=== PATIENT | male | born 1990 | race Caucasian/White ===

== ENCOUNTER 2021-12-27 09:25 | Inpatient (IN) | payer OTHER ==
[2021-12-27] MEDS ORDERED: Morphine 4 MG/ML Syringe IVPUSH ONE (09:31)
[2021-12-27] MEDS ORDERED: Sodium Chloride 0.9% 2.5 ML Syringe FLUSH PRN ×2 (09:34→17:13)
[2021-12-27] MEDS ORDERED: Sodium Chloride 0.9% 10 ML Syringe FLUSH PRN ×2 (09:34→17:13)
[2021-12-27 10:29] LABS: CARBON DIOXIDE,CO2 22.8 mmol/L (21.0-32.0); POTASSIUM,K 3.9 mmol/L (3.5-5.1)
[2021-12-27] MEDS ORDERED: Iopamidol 755 MG/ML 500 ML Multipack Bottle IVPUSH ONE (11:01)
[2021-12-27] MEDS ORDERED: metroNIDAZOLE/Normal Saline 500 MG in Premix Bag 1 BAG IV ONE (12:05)
[2021-12-27] MEDS ORDERED: cefTRIAXone 2 GM in Premix Bag 1 BAG IV ONE (12:05)
[2021-12-27] MEDS ORDERED: HYDROmorphone 2 MG/ML Syringe IVPUSH ONE (13:20)
[2021-12-27] MEDS ORDERED: Propofol 200 MG/20 ML SDV ONE (13:23)
[2021-12-27] MEDS ORDERED: Dexamethasone 4 MG/ML 5 ML MDV ONE (13:23)
[2021-12-27] MEDS ORDERED: Lidocaine 2% 5 ML SDV ONE (13:23)
[2021-12-27] MEDS ORDERED: Rocuronium Bromide 50 MG/5 ML Syringe ONE ×2 (13:23→15:02)
[2021-12-27] MEDS ORDERED: Sugammadex Sodium 200 MG/2 ML VIAL ONE (13:23)
[2021-12-27] MEDS ORDERED: Ondansetron 4 MG/2 ML SDV ONE (13:23)
[2021-12-27] MEDS ORDERED: fentaNYL 100 MCG/2 ML SDV ONE ×2 (13:24→15:20)
[2021-12-27] MEDS ORDERED: Midazolam 1 MG/ML 2 ML SDV ONE (13:24)
[2021-12-27] MEDS ORDERED: Ropivacaine 0.5% 5 MG/ML 30 ML SDV ONE ×2 (13:50→15:05)
[2021-12-27] MEDS ORDERED: Bupivacaine 0.5% 30 ML SDV ONE (14:01)
[2021-12-27] MEDS ORDERED: HYDROmorphone 2 MG/ML Syringe ONE (14:42)
[2021-12-27] MEDS ORDERED: ceFAZolin 1 GM Vial ONE (15:13)
[2021-12-27] MEDS ORDERED: Promethazine 25 MG/ML SDV IM PRN (17:13)
[2021-12-27] MEDS ORDERED: Metoclopramide 10 MG/2 ML SDV IVPUSH PRN (17:13)
[2021-12-27] MEDS ORDERED: Sodium Chloride 0.9% 20 ML SDV IV PRN (17:13)
[2021-12-27] MEDS ORDERED: Acetaminophen/oxyCODONE 325-5 MG Tab PO PRN (17:15)
[2021-12-27] MEDS: Piperacillin/Tazobactam 3.375 GM in Sodium Chloride 0.9% 50 ML IV SCH ×2 (19:09→22:48)
[2021-12-27] MEDS: Cyclobenzaprine 10 MG Tab PO SCH (19:09)
[2021-12-27] MEDS: Ketorolac 30 MG/ML SDV IVPUSH SCH ×2 (19:09→22:49)
[2021-12-28] MEDS: Lactated Ringers 1,000 ML IV SCH ×2 (01:33→12:18)
[2021-12-28] MEDS: Cyclobenzaprine 10 MG Tab PO SCH ×3 (01:36→16:29)
[2021-12-28] MEDS: Piperacillin/Tazobactam 3.375 GM in Sodium Chloride 0.9% 50 ML IV SCH ×4 (04:18→22:32)
[2021-12-28] MEDS: Ketorolac 30 MG/ML SDV IVPUSH SCH ×2 (04:25→12:29)
[2021-12-28 06:15] LABS: CARBON DIOXIDE,CO2 30.1 mmol/L (21.0-32.0); POTASSIUM,K 4.3 mmol/L (3.5-5.1)
[2021-12-28] MEDS: Ondansetron 4 MG/2 ML SDV IVPUSH PRN (07:58)
[2021-12-28] MEDS: Polyethylene Glycol 3350 Powder 17 GM Packet PO SCH (08:01)
[2021-12-28] MEDS ORDERED: Pantoprazole 40 MG in Sodium Chloride 0.9% 10 ML IVPUSH SCH (08:15)
[2021-12-28] MEDS ORDERED: Scopolamine 1.5 MG Transdermal Patch TOP ONE (11:18)
[2021-12-28] MEDS ORDERED: Metoclopramide 10 MG/2 ML SDV IVPUSH SCH (11:30)
[2021-12-28] MEDS ORDERED: Pantoprazole 40 MG Tab.CR PO SCH (12:00)
[2021-12-28] MEDS ORDERED: Acetaminophen/HYDROcodone 325-5 MG Tab PO PRN (12:04)
[2021-12-28] MEDS: Acetaminophen 1,000 MG in Premix Bag 1 BAG IV SCH ×3 (12:10→22:33)
[2021-12-28] MEDS: Calcium Carbonate 500 MG Tab.Chew PO PRN (12:26)
[2021-12-28] MEDS: Enoxaparin 40 MG/0.4 ML Syringe SUBCUT SCH (12:28)
[2021-12-28] MEDS: Metoclopramide 10 MG/2 ML SDV IV SCH ×2 (12:50→17:23)
[2021-12-28] MEDS: Pantoprazole 40 MG Tab.CR PO SCH (16:29)
[2021-12-28] MEDS: oxyCODONE 5 MG Tab PO PRN (21:23)
[2021-12-29] MEDS: Cyclobenzaprine 10 MG Tab PO SCH ×3 (00:15→16:54)
[2021-12-29] MEDS: Metoclopramide 10 MG/2 ML SDV IV SCH ×4 (00:15→17:45)
[2021-12-29] MEDS: Lactated Ringers 1,000 ML IV SCH ×3 (02:12→21:48)
[2021-12-29] MEDS: Acetaminophen/HYDROcodone 325-5 MG Tab PO PRN ×2 (02:17→19:59)
[2021-12-29] MEDS: Calcium Carbonate 500 MG Tab.Chew PO PRN ×3 (03:48→19:45)
[2021-12-29] MEDS: Acetaminophen 1,000 MG in Premix Bag 1 BAG IV SCH ×3 (05:12→17:42)
[2021-12-29] MEDS: Piperacillin/Tazobactam 3.375 GM in Sodium Chloride 0.9% 50 ML IV SCH ×4 (05:12→23:05)
[2021-12-29] MEDS: Pantoprazole 40 MG Tab.CR PO SCH ×2 (06:36→16:54)
[2021-12-29 07:19] LABS: CARBON DIOXIDE,CO2 27.6 mmol/L (21.0-32.0); POTASSIUM,K 4.3 mmol/L (3.5-5.1)
[2021-12-29] MEDS: Polyethylene Glycol 3350 Powder 17 GM Packet PO SCH (09:13)
[2021-12-29] MEDS: HYDROmorphone 1 MG/ML Syringe IVPUSH PRN ×2 (10:24→16:52)
[2021-12-29] MEDS: Ondansetron 4 MG/2 ML SDV IVPUSH PRN ×2 (10:24→19:44)
[2021-12-29] MEDS: Enoxaparin 40 MG/0.4 ML Syringe SUBCUT SCH (11:53)
[2021-12-29] MEDS ORDERED: Ondansetron 4 MG/2 ML SDV ONE (19:39)
[2021-12-29] MEDS: Pantoprazole 40 MG in Sodium Chloride 0.9% 10 ML IVPUSH SCH (21:48)
[2021-12-30] MEDS: HYDROmorphone 1 MG/ML Syringe IVPUSH PRN ×3 (00:23→21:28)
[2021-12-30] MEDS: Metoclopramide 10 MG/2 ML SDV IV SCH ×4 (00:26→19:08)
[2021-12-30] MEDS: Acetaminophen 1,000 MG in Premix Bag 1 BAG IV SCH ×4 (00:28→16:43)
[2021-12-30] MEDS: Cyclobenzaprine 10 MG Tab PO SCH ×3 (01:35→16:43)
[2021-12-30] MEDS: Piperacillin/Tazobactam 3.375 GM in Sodium Chloride 0.9% 50 ML IV SCH ×4 (04:18→22:15)
[2021-12-30 07:27] LABS: CARBON DIOXIDE,CO2 24.8 mmol/L (21.0-32.0); POTASSIUM,K 4.8 mmol/L (3.5-5.1)
[2021-12-30] MEDS: Pantoprazole 40 MG in Sodium Chloride 0.9% 10 ML IVPUSH SCH ×2 (09:28→21:26)
[2021-12-30] MEDS: Ondansetron 4 MG/2 ML SDV IVPUSH PRN ×3 (09:33→21:27)
[2021-12-30] MEDS: Polyethylene Glycol 3350 Powder 17 GM Packet PO SCH (09:39)
[2021-12-30] MEDS: Enoxaparin 40 MG/0.4 ML Syringe SUBCUT SCH (10:46)
[2021-12-30] MEDS: Lactated Ringers 1,000 ML IV SCH (19:04)
[2021-12-31] MEDS: Acetaminophen 1,000 MG in Premix Bag 1 BAG IV SCH ×2 (00:19→05:32)
[2021-12-31] MEDS: Cyclobenzaprine 10 MG Tab PO SCH ×3 (00:20→17:09)
[2021-12-31] MEDS: Metoclopramide 10 MG/2 ML SDV IV SCH ×5 (00:20→23:36)
[2021-12-31] MEDS: Piperacillin/Tazobactam 3.375 GM in Sodium Chloride 0.9% 50 ML IV SCH (04:16)
[2021-12-31] MEDS: Lactated Ringers 1,000 ML IV SCH ×3 (05:32→23:33)
[2021-12-31 07:10] LABS: POTASSIUM,K 3.6 mmol/L (3.5-5.1)
[2021-12-31] MEDS: Polyethylene Glycol 3350 Powder 17 GM Packet PO SCH (08:27)
[2021-12-31] MEDS: Pantoprazole 40 MG in Sodium Chloride 0.9% 10 ML IVPUSH SCH (08:27)
[2021-12-31] MEDS: Ciprofloxacin 500 MG Tab PO SCH ×2 (10:13→20:24)
[2021-12-31] MEDS: metroNIDAZOLE 250 MG Tab PO SCH ×2 (10:13→17:09)
[2021-12-31] MEDS: Enoxaparin 40 MG/0.4 ML Syringe SUBCUT SCH (10:13)
[2021-12-31] MEDS ORDERED: Scopolamine 1.5 MG Transdermal Patch TOP ONE (15:06)
[2021-12-31] MEDS: oxyCODONE 5 MG Tab PO PRN (20:23)
[2022-01-01] MEDS: metroNIDAZOLE 250 MG Tab PO SCH ×3 (01:50→17:37)
[2022-01-01] MEDS: Cyclobenzaprine 10 MG Tab PO SCH ×3 (01:50→17:35)
[2022-01-01] MEDS: Metoclopramide 10 MG/2 ML SDV IV SCH ×4 (06:14→23:48)
[2022-01-01] MEDS: Lactated Ringers 1,000 ML IV SCH ×2 (07:40→16:43)
[2022-01-01] MEDS ORDERED: traMADol 50 MG Tab PO PRN (08:40)
[2022-01-01] MEDS ORDERED: Ketorolac 10 MG Tab PO PRN (08:41)
[2022-01-01] MEDS ORDERED: Bisacodyl 5 MG Tab PO SCH (08:45)
[2022-01-01] MEDS: Polyethylene Glycol 3350 Powder 17 GM Packet PO SCH (09:41)
[2022-01-01] MEDS: Ciprofloxacin 500 MG Tab PO SCH (09:43)
[2022-01-01] MEDS: Ondansetron 4 MG/2 ML SDV IVPUSH PRN ×2 (10:47→17:37)
[2022-01-01] MEDS: Enoxaparin 40 MG/0.4 ML Syringe SUBCUT SCH (10:47)
[2022-01-01] MEDS: Calcium Carbonate 500 MG Tab.Chew PO PRN ×2 (10:48→14:11)
[2022-01-01] MEDS ORDERED: Benzocaine/Cetylpyridinium/Menthol Lozenge MUCMEM PRN (16:36)
[2022-01-01] MEDS: HYDROmorphone 1 MG/ML Syringe IVPUSH PRN ×2 (19:25→23:48)
[2022-01-01] MEDS: Phenol 1.4% Oral Spray 177 ML Bottle MUCMEM PRN ×2 (20:56→23:47)
[2022-01-01] MEDS: Ciprofloxacin in D5W 400 MG in Premix Bag 1 BAG IV SCH ×2 (20:57)
[2022-01-01] MEDS: LORazepam 2 MG/ML SDV IVPUSH PRN (20:57)
[2022-01-01] MEDS: Dextrose 5%-0.9% NaCl 1,000 ML IV SCH (21:09)
[2022-01-02] MEDS: metroNIDAZOLE/Normal Saline 500 MG in Premix Bag 1 BAG IV SCH ×3 (02:22→18:39)
[2022-01-02] MEDS: LORazepam 2 MG/ML SDV IVPUSH PRN (04:02)
[2022-01-02] MEDS: Metoclopramide 10 MG/2 ML SDV IV SCH ×3 (06:40→18:39)
[2022-01-02 07:41] LABS: CARBON DIOXIDE,CO2 30.9 mmol/L (21.0-32.0); POTASSIUM,K 3.8 mmol/L (3.5-5.1)
[2022-01-02] MEDS ORDERED: Iopamidol 755 MG/ML 500 ML Multipack Bottle IVPUSH STA (08:08)
[2022-01-02] MEDS ORDERED: Acetaminophen 1,000 MG in Premix Bag 1 BAG IV PRN (09:00)
[2022-01-02] MEDS ORDERED: Morphine 2 MG/ML SYRINGE IVPUSH PRN (09:00)
[2022-01-02] MEDS: Ciprofloxacin in D5W 400 MG in Premix Bag 1 BAG IV SCH ×4 (09:03→20:26)
[2022-01-02] MEDS: Phenol 1.4% Oral Spray 177 ML Bottle MUCMEM PRN (09:11)
[2022-01-02] MEDS: Polyethylene Glycol 3350 Powder 17 GM Packet PO SCH (09:11)
[2022-01-02] MEDS: Enoxaparin 40 MG/0.4 ML Syringe SUBCUT SCH (10:25)
[2022-01-02] MEDS: Ondansetron 4 MG/2 ML SDV IVPUSH PRN (12:00)
[2022-01-02] MEDS: Dextrose 5%-0.9% NaCl 1,000 ML IV SCH (12:00)
[2022-01-03] MEDS: Dextrose 5%-0.9% NaCl 1,000 ML IV SCH ×3 (00:13→22:05)
[2022-01-03] MEDS: Metoclopramide 10 MG/2 ML SDV IV SCH ×4 (00:19→17:14)
[2022-01-03] MEDS: metroNIDAZOLE/Normal Saline 500 MG in Premix Bag 1 BAG IV SCH ×3 (02:12→17:09)
[2022-01-03 07:15] LABS: POTASSIUM,K 3.5 mmol/L (3.5-5.1)
[2022-01-03] MEDS: Ciprofloxacin in D5W 400 MG in Premix Bag 1 BAG IV SCH ×4 (09:05→20:37)
[2022-01-03] MEDS: Polyethylene Glycol 3350 Powder 17 GM Packet PO SCH (09:07)
[2022-01-03] MEDS: Enoxaparin 40 MG/0.4 ML Syringe SUBCUT SCH (10:20)
[2022-01-03] MEDS ORDERED: Pantoprazole 40 MG in Sodium Chloride 0.9% 10 ML IVPUSH ONE (10:53)
[2022-01-03] MEDS: Pantoprazole 40 MG in Sodium Chloride 0.9% 10 ML IVPUSH SCH (20:37)
[2022-01-04] MEDS: Metoclopramide 10 MG/2 ML SDV IV SCH ×4 (00:19→18:53)
[2022-01-04] MEDS: metroNIDAZOLE/Normal Saline 500 MG in Premix Bag 1 BAG IV SCH ×3 (02:30→18:51)
[2022-01-04] MEDS: Pantoprazole 40 MG in Sodium Chloride 0.9% 10 ML IVPUSH SCH ×2 (08:07→20:35)
[2022-01-04] MEDS: Ciprofloxacin in D5W 400 MG in Premix Bag 1 BAG IV SCH ×4 (08:07→20:35)
[2022-01-04] MEDS: Dextrose 5%-0.9% NaCl 1,000 ML IV SCH (08:07)
[2022-01-05] MEDS: Metoclopramide 10 MG/2 ML SDV IV SCH ×2 (01:41→05:29)
[2022-01-05] MEDS: Cyclobenzaprine 10 MG Tab PO SCH ×2 (01:41→10:18)
[2022-01-05] MEDS: metroNIDAZOLE/Normal Saline 500 MG in Premix Bag 1 BAG IV SCH ×2 (02:09→10:18)
[2022-01-05] MEDS: Ciprofloxacin in D5W 400 MG in Premix Bag 1 BAG IV SCH ×2 (10:18)
[2022-01-05] MEDS: Pantoprazole 40 MG in Sodium Chloride 0.9% 10 ML IVPUSH SCH (10:18)
== END 2022-01-05 10:19 | disposition home or self-care (01) | DRG 339 ==
LOC: MW.ED 09:25 → MW.SDS 12:01 → MW.MS 16:23
PROVIDERS: ADMIT Surgery; ATTEND Surgery
PROC: 0DTJ0ZZ Resection of Appendix, Open Approach (ICD-10-PCS; principal; 2021-12-27)
PROC: 0WJG4ZZ Inspection of Peritoneal Cavity, Percutaneous Endoscopic Approach (ICD-10-PCS; 2021-12-27)
PROC: 0D9670Z Drainage of Stomach with Drainage Device, Via Natural or Artificial Opening (ICD-10-PCS; 2022-01-02)
DX: K35.32 Acute appendicitis with perforation, localized peritonitis, and gangrene, without abscess (principal); K56.600 Partial intestinal obstruction, unspecified as to cause; K56.7 Ileus, unspecified; K91.89 Other postprocedural complications and disorders of digestive system; K25.9 Gastric ulcer, unspecified as acute or chronic, without hemorrhage or perforation; Z53.31 Laparoscopic surgical procedure converted to open procedure; J45.909 Unspecified asthma, uncomplicated; Z20.822 Contact with and (suspected) exposure to COVID-19; K21.9 Gastro-esophageal reflux disease without esophagitis; K52.9 Noninfective gastroenteritis and colitis, unspecified
CPT/HCPCS: 00840; 36415; 64486; 71045; 71045-26; 74018; 74018-26; 74177; 74177-26; 74250; 74250-26; 80048; 80053; 83735; 84100; 85025; 85027; 85730; 86850; 86900; 86901; 96365; 96367; 96375; 99285-25; A9270-GY; C9113; J0131; J0690; J0696; J0744; J1100; J1170; J1650; J1885; J2060; J2250; J2270; J2405; J2543; J2704; J2765; J2795; J3010; J3490; J7030; J7042; J7120; Q9967; U0002